=== PATIENT | female | born 1940 | race Caucasian/White ===

== ENCOUNTER → 2016-05-03 | Outpatient (CLI) | payer MEDICARE, BC ==
[~2016-05-03] MED LIST: ESCI20TA10 PO; HYDR-3343 PO; HYDR25TA6 PO; LEVO88TA32 PO; LORA1TAB PO; LOSA100T6 PO; OMNIPAQUE 350 MG/ML, 75ML BOTTLE ONE; PENT100C2 PO; POTA10TA11 PO; SOTA120T26 PO; TRAM50TA2 PO; TYLENOL ARTHRITIS PO; WARF5TAB7 PO
== END | disposition home or self-care (01) ==
LOC: CFH 09:48
PROVIDERS: ATTEND Internal Medicine Cardiovascular Disease
DX: I08.3 Combined rheumatic disorders of mitral, aortic and tricuspid valves (principal); R91.1 Solitary pulmonary nodule; D16.01 Benign neoplasm of scapula and long bones of right upper limb; M25.811 Other specified joint disorders, right shoulder; I10 Essential (primary) hypertension; Z87.891 Personal history of nicotine dependence; I51.7 Cardiomegaly
CPT/HCPCS: 71260; 93306; Q9967

== ENCOUNTER 2017-01-16 15:45 | Inpatient (IN) | payer MEDICARE, BC ==
[~2017-01-16] VITALS: Ht 175.3 cm; Wt 98.0 kg
[~2017-01-16 15:45] MED LIST changes: -LEVO88TA32 PO; +LEVO88TA43 PO; -OMNIPAQUE 350 MG/ML, 75ML BOTTLE ONE
[2017-01-16] MEDS ORDERED: ONDANSETRON 2MG/ML, 2ML ONE (16:33)
[2017-01-16] MEDS ORDERED: ONDANSETRON 2MG/ML, 2ML IVPush ONE (17:00)
[2017-01-16] MEDS ORDERED: SODIUM CHLORIDE 0.9% 1,000ML IVBOLUS ONE (17:00)
[2017-01-16] MEDS ORDERED: SODIUM CHLORIDE FLUSH 10ML SYR IVF ONE (17:00)
[2017-01-16 17:27] LABS: MEAN CORPUSCULAR HEMOGLOBIN 33.3 pg (27.0-34.8); MEAN CORPUSCULAR HGB CONC 33.6 g/dL (32.4-35.8); MEAN CORPUSCULAR VOLUME 99.2 fL (80-100); PLATELET COUNT 269 x10^3/uL (130-400); RED BLOOD COUNT 4.24 x10^6/uL (3.82-5.3); RED CELL DISTRIBUTION WIDTH 12.9 % (9.6-15.2)
[2017-01-16 17:34] LABS: INTERNATIONAL NORMALIZED RATIO 1.02 (0.93-1.1); PROTHROMBIN TIME 10.5 Seconds (9.6-11.5)
[2017-01-16 17:46] LABS: ALANINE AMINOTRANSFERASE 21 U/L (12-78); ALBUMIN 3.4 g/dL (3.4-5.0); BASOPHILS # (AUTO) 0.01 x10^3/uL (0-0.1); BASOPHILS % (AUTO) 0 % (0-1); BILIRUBIN, DIRECT 0.1 mg/dL (0.1-0.2); EOSINOPHILS # (AUTO) 0.11 x10^3/uL (0-0.4); EOSINOPHILS % (AUTO) 1 % (1-7); LYMPHOCYTES # (AUTO) 1.16 x10^3/uL (1-3.4); LYMPHOCYTES % (AUTO) 6 % (22-44); MD SCAN; MONOCYTES # (AUTO) 0.54 x10^3/uL (0.2-0.8); MONOCYTES % (AUTO) 3 % (2-9); NEUTROPHILS % (AUTO) 90 % (42-75)
[2017-01-16 17:49] LABS: ALKALINE PHOSPHATASE 72 U/L (45-117); BILIRUBIN,INDIRECT 0.6 mg/dL (0.0-2.0); BILIRUBIN,TOTAL 0.7 mg/dL (0.2-1.0); TOTAL PROTEIN 6.7 g/dL (6.4-8.2); TROPONIN I 0.055 ng/mL (0.000-0.045)
[2017-01-16] MEDS ORDERED: OMNIPAQUE 350 MG/ML, 100ML BOTTLE ONE (18:04)
[2017-01-16] MEDS ORDERED: hydrALAzine 20 MG/ML, 1ML ONE (18:50)
[2017-01-16] MEDS ORDERED: hydrALAzine 20 MG/ML, 1ML IV ONE (19:00)
[2017-01-16] MEDS ORDERED: LIDOCAINE 1%-EPI 1:100K, 20ML INFIL ONE (19:00)
[2017-01-16] MEDS ORDERED: HYDROmorphone 1 MG/ML, 1ML IV ONE ×2 (19:30→20:00)
[2017-01-16] MEDS ORDERED: LIDOCAINE/PF 1%-EPI 1:200K, 30 ML INFIL ONE (19:30)
[2017-01-16] MEDS ORDERED: DIPHENHYDRAMINE 50 MG/ML, 1ML IVPush ONE (20:00)
[2017-01-16] MEDS ORDERED: DIPHENHYDRAMINE 50 MG/ML, 1ML ONE (20:03)
[2017-01-16] MEDS ORDERED: HYDROmorphone 1 MG/ML, 1ML ONE (20:03)
[2017-01-16] MEDS ORDERED: BACITRACIN ZINC OINT 500U/GM, 0.9 GM ONE (20:13)
[2017-01-16] MEDS ORDERED: ASPI-515 PO (20:23)
[2017-01-16] MEDS ORDERED: PROMETHAZINE 25 MG/ML, 1ML ONE (20:33)
[2017-01-16] MEDS ORDERED: PROMETHAZINE 25 MG/ML, 1ML IM ONE (21:00)
[2017-01-16] MEDS ORDERED: CEFAZOLIN PMX 2GM/50ML 50 ML IV ONE (21:00)
[2017-01-16] MEDS: SODIUM CHLORIDE 0.9% 1,000 ML IV SCH (22:38)
[2017-01-16 22:47] LABS: TROPONIN I 0.052 ng/mL (0.000-0.045)
[2017-01-17] MEDS ORDERED: DIPHENHYDRAMINE 50 MG/ML, 1ML ONE (00:41)
[2017-01-17] MEDS ORDERED: HYDROmorphone 1 MG/ML, 1ML ONE (00:41)
[2017-01-17] MEDS ORDERED: HYDROmorphone 2 MG/ML, 1ML IVPush PRN (01:00)
[2017-01-17] MEDS ORDERED: DIPHENHYDRAMINE 50 MG/ML, 1ML IVPush SCH (01:00)
[2017-01-17 03:58] LABS: ALBUMIN 3.1 g/dL (3.4-5.0); ANION GAP 8 mmol/L (5-15); CALCIUM 8.9 mg/dL (8.5-10.1); CHLORIDE 101 mmol/L (98-107)
[2017-01-17 04:04] LABS: ALANINE AMINOTRANSFERASE 19 U/L (12-78); ALKALINE PHOSPHATASE 65 U/L (45-117); BILIRUBIN,TOTAL 0.7 mg/dL (0.2-1.0); CHOL/HDL RATIO 3.9; CHOLESTEROL, TOTAL 162 mg/dL (140-239); CREATININE 0.87 mg/dL (0.55-1.02); HDL CHOL % 26 % (28-40); HDL CHOLESTEROL (DIRECT) 42 mg/dL (40-60); LDL CHOLESTEROL,CALCULATED 102 mg/dL (54-169); LDL/HDL RATIO 2.4 (0.5-3.0); TOTAL PROTEIN 6.2 g/dL (6.4-8.2); TRIGLYCERIDES 91 mg/dL (50-200); TROPONIN I 0.041 ng/mL (0.000-0.045); VLDL CHOLESTEROL 18 mg/dL (0-25)
[2017-01-17 04:14] LABS: BASOPHILS % (AUTO) 0 % (0-1); EOSINOPHILS # (AUTO) 0.02 x10^3/uL (0-0.4); EOSINOPHILS % (AUTO) 0 % (1-7); LYMPHOCYTES # (AUTO) 0.92 x10^3/uL (1-3.4); LYMPHOCYTES % (AUTO) 7 % (22-44); MD NO; MEAN CORPUSCULAR HEMOGLOBIN 33.1 pg (27.0-34.8); MEAN CORPUSCULAR HGB CONC 33.5 g/dL (32.4-35.8); MEAN CORPUSCULAR VOLUME 98.9 fL (80-100); MEAN PLATELET VOLUME 7.8 fL (7.4-10.4); MONOCYTES # (AUTO) 0.31 x10^3/uL (0.2-0.8); MONOCYTES % (AUTO) 2 % (2-9); NEUTROPHILS # (AUTO) 11.76 x10^3/uL (1.8-6.8); NEUTROPHILS % (AUTO) 91 % (42-75); PLATELET COUNT 277 x10^3/uL (130-400); RED BLOOD COUNT 4.06 x10^6/uL (3.82-5.3); RED CELL DISTRIBUTION WIDTH 12.8 % (9.6-15.2)
[2017-01-17] MEDS: SODIUM CHLORIDE 0.9% 1,000 ML IV SCH (08:22)
[2017-01-17] MEDS ORDERED: MAGNESIUM CITRATE 300ML ORAL SOL PO PRN (09:00)
[2017-01-17] MEDS ORDERED: POLYETHYLENE GLYCOL 17 GM PACKET PO PRN (09:00)
[2017-01-17] MEDS ORDERED: BISACODYL 10 MG SUPP PR PRN (09:00)
[2017-01-17] MEDS ORDERED: OXYcodone IR 5MG TABLET PO PRN (09:00)
[2017-01-17] MEDS: LEVOTHYROXINE 88 MCG TABLET PO SCH (09:15)
[2017-01-17] MEDS: CITALOPRAM 20 MG TABLET PO SCH (09:15)
[2017-01-17] MEDS: LOSARTAN 50MG TABLET PO SCH (09:16)
[2017-01-17] MEDS: DOCUSATE 100 MG CAPSULE PO SCH (09:16)
[2017-01-17] MEDS: DIPHENHYDRAMINE 25 MG CAPSULE PO PRN ×2 (10:01→17:26)
[2017-01-17] MEDS: ONDANSETRON 2MG/ML, 2ML IVPush PRN (19:45)
[2017-01-17] MEDS: SOTALOL 120MG TABLET PO SCH (19:45)
[2017-01-17] MEDS: SENNA/DOCUSATE TABLET PO SCH (19:47)
[2017-01-18 04:24] VITALS: BP 139/59
[2017-01-18] MEDS: LEVOTHYROXINE 88 MCG TABLET PO SCH (04:39)
[2017-01-18] MEDS: ACETAMINOPHEN 325 MG TABLET PO PRN ×2 (04:39→16:54)
[2017-01-18] MEDS: MECLIZINE CHEWABLE 25 MG TAB PO PRN ×2 (04:39→16:54)
[2017-01-18 04:45] LABS: ANION GAP 3 mmol/L (5-15); CHLORIDE 103 mmol/L (98-107); CREATININE 0.93 mg/dL (0.55-1.02)
[2017-01-18] MEDS ORDERED: POTASSIUM CHLORIDE 20 MEQ TAB.ER.PRT PO ONE (08:00)
[2017-01-18] MEDS: DOCUSATE 100 MG CAPSULE PO SCH (08:44)
[2017-01-18] MEDS: CITALOPRAM 20 MG TABLET PO SCH (08:44)
[2017-01-18] MEDS: SOTALOL 120MG TABLET PO SCH ×2 (08:45→21:34)
[2017-01-18] MEDS: LOSARTAN 50MG TABLET PO SCH (08:46)
[2017-01-18 16:36] VITALS: BP 172/83
[2017-01-18 16:53] VITALS: BP 165/88
[2017-01-18 20:59] VITALS: BP 135/75
[2017-01-18] MEDS: SENNA/DOCUSATE TABLET PO SCH (21:00)
[2017-01-19 01:37] VITALS: BP 158/77
[2017-01-19] MEDS: DIPHENHYDRAMINE 25 MG CAPSULE PO PRN ×3 (01:47→20:27)
[2017-01-19] MEDS: LEVOTHYROXINE 88 MCG TABLET PO SCH (06:00)
[2017-01-19 08:30] VITALS: BP 157/83
[2017-01-19] MEDS: DOCUSATE 100 MG CAPSULE PO SCH (09:00)
[2017-01-19] MEDS: CITALOPRAM 20 MG TABLET PO SCH (10:44)
[2017-01-19] MEDS: SOTALOL 120MG TABLET PO SCH ×2 (10:44→20:27)
[2017-01-19] MEDS: MECLIZINE CHEWABLE 25 MG TAB PO PRN ×2 (10:44→17:29)
[2017-01-19] MEDS: LOSARTAN 50MG TABLET PO SCH (10:47)
[2017-01-19 14:30] VITALS: BP 157/77
[2017-01-19 17:18] LABS: CLOSTRIDIUM DIFFICILE ANTIGEN NEGATIVE; CLOSTRIDIUM DIFFICILE TOXIN NEGATIVE (Negative)
[2017-01-19] MEDS: ACETAMINOPHEN 325 MG TABLET PO PRN (17:29)
[2017-01-19] MEDS ORDERED: DIPHENOXYLATE/ATROPINE TABLET PO PRN (18:00)
[2017-01-19 20:25] VITALS: BP 154/77
[2017-01-20 02:30] VITALS: BP 173/86
[2017-01-20 05:00] LABS: ANION GAP 3 mmol/L (5-15); CALCIUM 8.9 mg/dL (8.5-10.1); CHLORIDE 102 mmol/L (98-107)
[2017-01-20 05:01] LABS: CREATININE 0.81 mg/dL (0.55-1.02)
[2017-01-20] MEDS: LEVOTHYROXINE 88 MCG TABLET PO SCH (05:49)
[2017-01-20 07:54] VITALS: BP 153/89
[2017-01-20] MEDS: CITALOPRAM 20 MG TABLET PO SCH (08:45)
[2017-01-20] MEDS: LOSARTAN 50MG TABLET PO SCH (08:46)
[2017-01-20] MEDS: SOTALOL 120MG TABLET PO SCH ×2 (08:46→20:46)
[2017-01-20] MEDS: DOCUSATE 100 MG CAPSULE PO SCH (08:46)
[2017-01-20] MEDS: ACETAMINOPHEN 325 MG TABLET PO PRN (12:55)
[2017-01-20] MEDS: DIPHENHYDRAMINE 25 MG CAPSULE PO PRN ×2 (13:51→20:46)
[2017-01-20 14:30] VITALS: BP 157/94
[2017-01-20 20:10] VITALS: BP_SYST 195; BP_SYST 196; BP_DIAS 79; BP_DIAS 82
[2017-01-20] MEDS: MECLIZINE CHEWABLE 25 MG TAB PO PRN (20:46)
[2017-01-21 00:53] VITALS: BP 188/80
[2017-01-21] MEDS: ACETAMINOPHEN 325 MG TABLET PO PRN (01:12)
[2017-01-21] MEDS: hydrALAzine 20 MG/ML, 1ML IVPush PRN ×2 (01:14→05:17)
[2017-01-21 02:22] VITALS: BP 175/82
[2017-01-21] MEDS: LEVOTHYROXINE 88 MCG TABLET PO SCH (05:07)
[2017-01-21 05:09] VITALS: BP 180/81
[2017-01-21] MEDS: DIPHENHYDRAMINE 25 MG CAPSULE PO PRN (06:19)
[2017-01-21] MEDS: ONDANSETRON 2MG/ML, 2ML IVPush PRN (07:29)
[2017-01-21 07:52] VITALS: BP 180/83
[2017-01-21] MEDS: LOSARTAN 50MG TABLET PO SCH (08:26)
[2017-01-21] MEDS: SOTALOL 120MG TABLET PO SCH (08:27)
[2017-01-21] MEDS: CITALOPRAM 20 MG TABLET PO SCH (08:27)
[2017-01-21] MEDS: DOCUSATE 100 MG CAPSULE PO SCH (08:28)
[2017-01-21] MEDS ORDERED: HYDROCHLOROTHIAZIDE 25 MG TABLET PO SCH (09:00)
[2017-01-21] MEDS ORDERED: ASPIRIN 81 MG TABLET EC PO SCH (09:00)
[2017-01-21] MEDS ORDERED: POTASSIUM CHLORIDE 10 MEQ TABLET.ER PO SCH (09:00)
[2017-01-21 14:05] VITALS: BP 158/88
== END 2017-01-21 15:54 | disposition home or self-care (01) | DRG 84 ==
LOC: ED 20:03 → EDIP 20:57 → SUATTDRO 21:45 → CCU 01-17 07:45 → 4EST 01-18 16:24
PROVIDERS: ADMIT Hospitalist; ATTEND Hospitalist
PROC: 0HQ0XZZ Repair Scalp Skin, External Approach (ICD-10-PCS; principal; 2017-01-16)
PROC: 0HD0XZZ Extraction of Scalp Skin, External Approach (ICD-10-PCS; 2017-01-16)
DX: S06.5X9A Traumatic subdural hemorrhage with loss of consciousness of unspecified duration, initial encounter (principal); I48.0 Paroxysmal atrial fibrillation; I11.9 Hypertensive heart disease without heart failure; S02.119A Unspecified fracture of occiput, initial encounter for closed fracture; Z88.8 Allergy status to other drugs, medicaments and biological substances; E03.9 Hypothyroidism, unspecified; F32.9 Major depressive disorder, single episode, unspecified; M19.90 Unspecified osteoarthritis, unspecified site; M43.12 Spondylolisthesis, cervical region; S01.01XA Laceration without foreign body of scalp, initial encounter; W18.30XA Fall on same level, unspecified, initial encounter; Y93.89 Activity, other specified; Y92.89 Other specified places as the place of occurrence of the external cause; Y99.8 Other external cause status; Z79.82 Long term (current) use of aspirin; Z96.643 Presence of artificial hip joint, bilateral; Z96.659 Presence of unspecified artificial knee joint; I65.21 Occlusion and stenosis of right carotid artery
CPT/HCPCS: 13121; 36415; 70450; 71010; 71275; 72125; 80047; 80048; 80053; 80061; 80076; 83690; 83735; 84484; 85025; 85610; 85730; 87081; 87324; 93005; 93306; 93880; 96361; 96365; 96372; 96375; 96376; J0690; J1170; J2405; J2550; Q9967; J0360; J1200; J7030; Q0163

== ENCOUNTER 2017-02-07 18:12 | Emergency (ER) | payer MEDICARE, BC ==
[~2017-02-07] VITALS: Ht 175.3 cm; Wt 88.6 kg
[~2017-02-07 18:12] MED LIST changes: +ASPI-515 PO
[2017-02-07] MEDS ORDERED: PLEASE ENTER HEIGHT AND WEIGHT MC SCH (18:30)
[2017-02-07] MEDS ORDERED: ASPI-496 PO (18:31)
[2017-02-07 18:40] LABS: BASOPHILS # (AUTO) 0.06 x10^3/uL (0-0.1); BASOPHILS % (AUTO) 1 % (0-1); EOSINOPHILS # (AUTO) 0.15 x10^3/uL (0-0.4); EOSINOPHILS % (AUTO) 1 % (1-7); LYMPHOCYTES # (AUTO) 2.22 x10^3/uL (1-3.4); LYMPHOCYTES % (AUTO) 19 % (22-44); MD NO; MEAN CORPUSCULAR HEMOGLOBIN 32.6 pg (27.0-34.8); MEAN CORPUSCULAR HGB CONC 33.1 g/dL (32.4-35.8); MEAN CORPUSCULAR VOLUME 98.5 fL (80-100); MEAN PLATELET VOLUME 7.3 fL (7.4-10.4); MONOCYTES # (AUTO) 0.63 x10^3/uL (0.2-0.8); MONOCYTES % (AUTO) 5 % (2-9); NEUTROPHILS # (AUTO) 8.72 x10^3/uL (1.8-6.8); NEUTROPHILS % (AUTO) 74 % (42-75); PLATELET COUNT 318 x10^3/uL (130-400); RED BLOOD COUNT 4.34 x10^6/uL (3.82-5.3); RED CELL DISTRIBUTION WIDTH 12.6 % (9.6-15.2)
[2017-02-07 18:51] LABS: ALBUMIN 3.4 g/dL (3.4-5.0); ANION GAP 10 mmol/L (5-15); CALCIUM 9.6 mg/dL (8.5-10.1); CHLORIDE 100 mmol/L (98-107); CREATININE 0.85 mg/dL (0.55-1.02)
[2017-02-07 19:40] VITALS: BP 180/81
== END 2017-02-07 19:45 | disposition home or self-care (01) ==
LOC: ED 19:25
DX: I10 Essential (primary) hypertension (principal); F07.81 Postconcussional syndrome; I48.91 Unspecified atrial fibrillation
CPT/HCPCS: 36415; 70450; 71010; 80048; 82040; 85025; 93005; 99285

== ENCOUNTER → 2017-03-31 | Outpatient (CLI) | payer MEDICARE, BC ==
[~2017-03-31] MED LIST changes: +ASPI-496 PO; +REGADENOSON 0.4 MG/5 ML SYRINGE ONE
== END | disposition home or self-care (01) ==
LOC: CFH 08:09
PROVIDERS: ATTEND Internal Medicine Cardiovascular Disease
DX: I48.0 Paroxysmal atrial fibrillation (principal); R55 Syncope and collapse
CPT/HCPCS: 78452; 93017; A9502; J2785

== ENCOUNTER 2017-04-16 18:45 | Inpatient (IN) | payer MEDICARE, BC ==
[~2017-04-16] VITALS: Ht 175.3 cm; Wt 92.7 kg
[~2017-04-16 18:45] MED LIST changes: -REGADENOSON 0.4 MG/5 ML SYRINGE ONE
[2017-04-16] MEDS ORDERED: SODIUM CHLORIDE FLUSH 10ML SYR IVF ONE (19:00)
[2017-04-16] MEDS ORDERED: LORazepam 2 MG/ML, 1ML IVPush ONE (19:00)
[2017-04-16] MEDS ORDERED: METOPROLOL 1 MG/ML, 5ML ONE (19:12)
[2017-04-16] MEDS ORDERED: LORazepam 2 MG/ML, 1ML ONE (19:13)
[2017-04-16] MEDS: METOPROLOL 1 MG/ML, 5ML IVPush PRN ×4 (19:16→22:23)
[2017-04-16 19:19] LABS: BASOPHILS # (AUTO) 0.06 x10^3/uL (0-0.1); BASOPHILS % (AUTO) 0 % (0-1); EOSINOPHILS # (AUTO) 0.13 x10^3/uL (0-0.4); EOSINOPHILS % (AUTO) 1 % (1-7); LYMPHOCYTES # (AUTO) 2.37 x10^3/uL (1-3.4); LYMPHOCYTES % (AUTO) 17 % (22-44); MD NO; MEAN CORPUSCULAR HGB CONC 33.7 g/dL (32.4-35.8); MEAN CORPUSCULAR VOLUME 97.8 fL (80-100); MONOCYTES # (AUTO) 0.96 x10^3/uL (0.2-0.8); MONOCYTES % (AUTO) 7 % (2-9); NEUTROPHILS # (AUTO) 10.22 x10^3/uL (1.8-6.8); NEUTROPHILS % (AUTO) 74 % (42-75); PLATELET COUNT 286 x10^3/uL (130-400); RED BLOOD COUNT 4.44 x10^6/uL (3.82-5.3); RED CELL DISTRIBUTION WIDTH 12.9 % (9.6-15.2)
[2017-04-16 19:25] LABS: INTERNATIONAL NORMALIZED RATIO 0.96 (0.93-1.1)
[2017-04-16 19:31] LABS: ALANINE AMINOTRANSFERASE 19 U/L (12-78); ALBUMIN 3.3 g/dL (3.4-5.0); ANION GAP 7 mmol/L (5-15); CALCIUM 9.2 mg/dL (8.5-10.1); CHLORIDE 99 mmol/L (98-107); CREATININE 0.93 mg/dL (0.55-1.02)
[2017-04-16] MEDS ORDERED: GABA300C10 PO (19:33)
[2017-04-16 19:35] LABS: ALKALINE PHOSPHATASE 77 U/L (45-117); BILIRUBIN,TOTAL 0.5 mg/dL (0.2-1.0); T4 (THYROXINE) 10.4 mcg/dL (4.8-13.9); TOTAL PROTEIN 6.8 g/dL (6.4-8.2); TROPONIN I < 0.015 ng/mL (0.000-0.045)
[2017-04-16] MEDS ORDERED: DILTIAZEM 125 MG in DEXTROSE 5% 100 ML IV SCH (19:47)
[2017-04-16] MEDS ORDERED: HEPARIN 25,000 UNITS/500ML PMX 500 ML IV PRN (20:00)
[2017-04-16] MEDS ORDERED: POTASSIUM CHLORIDE 20 MEQ TAB.ER.PRT PO ONE (20:00)
[2017-04-16] MEDS ORDERED: DILTIAZEM 5 MG/ML, 5ML IVPush ONE (20:00)
[2017-04-16] MEDS ORDERED: HEPARIN 5,000 UNITS/ML, 1ML IV ONE (20:00)
[2017-04-16] MEDS ORDERED: HEPARIN 25,000 UNITS/500ML PMX 500 ML ONE (20:01)
[2017-04-16] MEDS ORDERED: HEPARIN 5,000 UNITS/ML, 1ML ONE (20:01)
[2017-04-16] MEDS ORDERED: POTASSIUM CHLORIDE 20 MEQ TAB.ER.PRT ONE (20:01)
[2017-04-16] MEDS ORDERED: DILTIAZEM 5 MG/ML, 5ML ONE (20:02)
[2017-04-16] MEDS ORDERED: morphine SULFATE 10 MG/ML, 1ML IVPush PRN (21:00)
[2017-04-16] MEDS ORDERED: POLYETHYLENE GLYCOL 17 GM PACKET PO PRN (21:00)
[2017-04-16] MEDS ORDERED: ACETAMINOPHEN 325 MG TABLET PO PRN (21:00)
[2017-04-16] MEDS ORDERED: ONDANSETRON 2MG/ML, 2ML IVPush PRN (21:00)
[2017-04-16] MEDS ORDERED: ENOXAPARIN 40 MG/0.4 ML SQ SCH (21:00)
[2017-04-16 22:00] VITALS: BP 122/82
[2017-04-16 22:03] VITALS: BP 122/82
[2017-04-16] MEDS: NS + 20MEQ KCL 1,000 ML IV SCH (22:45)
[2017-04-16] MEDS: SOTALOL 120MG TABLET PO SCH (22:46)
[2017-04-17 02:10] VITALS: BP 116/77
[2017-04-17 05:22] LABS: ANION GAP 8 mmol/L (5-15); CHLORIDE 105 mmol/L (98-107)
[2017-04-17 05:28] LABS: ALANINE AMINOTRANSFERASE 14 U/L (12-78); ALKALINE PHOSPHATASE 66 U/L (45-117); BILIRUBIN,TOTAL 0.6 mg/dL (0.2-1.0); CREATININE 0.77 mg/dL (0.55-1.02); TOTAL PROTEIN 5.9 g/dL (6.4-8.2)
[2017-04-17 05:32] LABS: BASOPHILS # (AUTO) 0.05 x10^3/uL (0-0.1); BASOPHILS % (AUTO) 1 % (0-1); EOSINOPHILS # (AUTO) 0.14 x10^3/uL (0-0.4); EOSINOPHILS % (AUTO) 2 % (1-7); LYMPHOCYTES # (AUTO) 1.95 x10^3/uL (1-3.4); LYMPHOCYTES % (AUTO) 22 % (22-44); MD NO; MEAN CORPUSCULAR HEMOGLOBIN 32.9 pg (27.0-34.8); MEAN CORPUSCULAR HGB CONC 33.6 g/dL (32.4-35.8); MEAN PLATELET VOLUME 8.2 fL (7.4-10.4); MONOCYTES # (AUTO) 0.69 x10^3/uL (0.2-0.8); MONOCYTES % (AUTO) 8 % (2-9); NEUTROPHILS # (AUTO) 6.22 x10^3/uL (1.8-6.8); NEUTROPHILS % (AUTO) 69 % (42-75); PLATELET COUNT 252 x10^3/uL (130-400); RED BLOOD COUNT 4.17 x10^6/uL (3.82-5.3); RED CELL DISTRIBUTION WIDTH 13.5 % (9.6-15.2)
[2017-04-17 07:14] VITALS: BP 154/75
[2017-04-17] MEDS ORDERED: SODIUM CHLORIDE 0.9% 1,000 ML IV ONE (08:42)
[2017-04-17] MEDS ORDERED: CITALOPRAM 20 MG TABLET PO SCH (09:00)
[2017-04-17] MEDS ORDERED: POTASSIUM CHLORIDE 20 MEQ TAB.ER.PRT PO SCH (09:00)
[2017-04-17] MEDS ORDERED: ASPIRIN 81 MG TABLET EC PO SCH (09:00)
[2017-04-17] MEDS ORDERED: LEVOTHYROXINE 88 MCG TABLET PO SCH (09:00)
[2017-04-17] MEDS ORDERED: SPIRONOLACT/HCTZ 25/25MG TABLET PO SCH (09:00)
[2017-04-17] MEDS ORDERED: LOSARTAN 50MG TABLET PO SCH (09:00)
[2017-04-17] MEDS ORDERED: DILTIAZEM 120 MG CAP.ER.24H PO SCH (09:00)
[2017-04-17] MEDS: NS + 20MEQ KCL 1,000 ML IV SCH (09:02)
[2017-04-17] MEDS: SOTALOL 120MG TABLET PO SCH (09:03)
[2017-04-17 10:40] LABS: HEMOGLOBIN A1C 6.2 % (4.2-6.3)
[2017-04-17 10:48] LABS: CHOLESTEROL, TOTAL 140 mg/dL (140-239); TRIGLYCERIDES 144 mg/dL (50-200); VLDL CHOLESTEROL 29 mg/dL (0-25)
[2017-04-17 10:52] LABS: CHOL/HDL RATIO 4.5; HDL CHOL % 22 % (28-40); HDL CHOLESTEROL (DIRECT) 31 mg/dL (40-60); LDL CHOLESTEROL,CALCULATED 80 mg/dL (54-169); LDL/HDL RATIO 2.6 (0.5-3.0); TROPONIN I 0.144 ng/mL (0.000-0.045)
[2017-04-17] MEDS ORDERED: VERAPAMIL 2.5 MG/ML, 2ML ONE (12:21)
[2017-04-17] MEDS ORDERED: MIDAZOLAM 1 MG/ML, 5ML ONE (12:21)
[2017-04-17] MEDS ORDERED: TICAGRELOR 90 MG TABLET ONE (12:21)
[2017-04-17] MEDS ORDERED: FENTANYL PF 100 MCG/2ML ONE (12:21)
[2017-04-17] MEDS ORDERED: BIVALIRUDIN 250 MG ONE (12:21)
[2017-04-17] MEDS ORDERED: DIPHENHYDRAMINE 50 MG/ML, 1ML ONE (12:22)
[2017-04-17] MEDS ORDERED: LIDOCAINE 2%, 20ML ONE (12:22)
[2017-04-17] MEDS ORDERED: HEPARIN 1,000 UNITS/ML, 10ML ONE (12:22)
[2017-04-17 13:18] VITALS: BP 157/84
[2017-04-17] MEDS ORDERED: ACETAMINOPHEN 325 MG TABLET PO PRN (13:30)
[2017-04-17] MEDS ORDERED: HYDR-3343 PO (17:01)
[2017-04-17] MEDS ORDERED: SPIR1TAB3 PO (17:01)
[2017-04-17] MEDS ORDERED: DILT120C9 PO (17:02)
[2017-04-17] MEDS ORDERED: ATOR40TA PO (17:03)
[2017-04-17] MEDS ORDERED: ATORVASTATIN 40 MG TABLET PO SCH (21:00)
== END 2017-04-17 20:31 | disposition home or self-care (01) | DRG 287 ==
LOC: ED 19:13 → EDIP 19:51 → 5SO 21:36
PROVIDERS: ADMIT Hospitalist; ATTEND Hospitalist
PROC: 4A023N7 Measurement of Cardiac Sampling and Pressure, Left Heart, Percutaneous Approach (ICD-10-PCS; principal; 2017-04-16)
PROC: B2111ZZ Fluoroscopy of Multiple Coronary Arteries using Low Osmolar Contrast (ICD-10-PCS; 2017-04-16)
PROC: B2151ZZ Fluoroscopy of Left Heart using Low Osmolar Contrast (ICD-10-PCS; 2017-04-16)
DX: I48.0 Paroxysmal atrial fibrillation (principal); D68.69 Other thrombophilia; I49.5 Sick sinus syndrome; I25.10 Atherosclerotic heart disease of native coronary artery without angina pectoris; I65.21 Occlusion and stenosis of right carotid artery; I48.92 Unspecified atrial flutter; E03.9 Hypothyroidism, unspecified; I10 Essential (primary) hypertension; E78.5 Hyperlipidemia, unspecified; F17.210 Nicotine dependence, cigarettes, uncomplicated; Z96.643 Presence of artificial hip joint, bilateral; Z96.652 Presence of left artificial knee joint; F32.9 Major depressive disorder, single episode, unspecified; G89.29 Other chronic pain; M19.90 Unspecified osteoarthritis, unspecified site; M54.9 Dorsalgia, unspecified; Z79.01 Long term (current) use of anticoagulants; Z79.82 Long term (current) use of aspirin; Z79.899 Other long term (current) drug therapy; Z90.710 Acquired absence of both cervix and uterus; Z88.8 Allergy status to other drugs, medicaments and biological substances; Z88.5 Allergy status to narcotic agent
CPT/HCPCS: 36415; 71045; 80053; 80061; 83036; 83735; 83880; 84100; 84436; 84443; 84484; 85025; 85520; 85610; 93005; 93306; 93458; 96374; 96375; 99156; C1769; C1894; J0583; J1644; J1650; J2250; J3010; J3480; J3490; J1200; J2060; Q9967

== ENCOUNTER 2018-01-25 09:49 | Inpatient (IN) | payer MEDICARE, BC ==
[~2018-01-25] VITALS: Ht 175.3 cm; Wt 101.5 kg
[~2018-01-25 09:49] MED LIST changes: +ATOR40TA PO; +DILT120C9 PO; +GABA300C10 PO; -LOSA100T6 PO; +LOSA100T7 PO; +SPIR1TAB3 PO; +WARF-36 PO; -WARF5TAB7 PO
[2018-01-25] MEDS ORDERED: FENTANYL PF 100 MCG/2ML IVPush PRN (11:00)
[2018-01-25] MEDS ORDERED: FENTANYL PF 100 MCG/2ML ONE (11:12)
[2018-01-25 11:30] LABS: BASOPHILS # (AUTO) 0.09 x10^3/uL (0-0.1); BASOPHILS % (AUTO) 1 % (0-1); EOSINOPHILS # (AUTO) 0.16 x10^3/uL (0-0.4); EOSINOPHILS % (AUTO) 1 % (1-7); LYMPHOCYTES # (AUTO) 1.11 x10^3/uL (1-3.4); LYMPHOCYTES % (AUTO) 10 % (22-44); MD NO; MEAN CORPUSCULAR HEMOGLOBIN 32.4 pg (27.0-34.8); MEAN CORPUSCULAR HGB CONC 32.9 g/dL (32.4-35.8); MEAN CORPUSCULAR VOLUME 98.5 fL (80-100); MEAN PLATELET VOLUME 8.1 fL (7.4-10.4); MONOCYTES # (AUTO) 0.65 x10^3/uL (0.2-0.8); MONOCYTES % (AUTO) 6 % (2-9); NEUTROPHILS # (AUTO) 9.04 x10^3/uL (1.8-6.8); NEUTROPHILS % (AUTO) 82 % (42-75); PLATELET COUNT 262 x10^3/uL (130-400); RED CELL DISTRIBUTION WIDTH 13.1 % (9.6-15.2)
[2018-01-25 11:42] LABS: INTERNATIONAL NORMALIZED RATIO 1.02 (0.93-1.1); PROTHROMBIN TIME 10.8 Seconds (9.6-11.5)
[2018-01-25 11:52] LABS: ALBUMIN 3.2 g/dL (3.4-5.0); ANION GAP 7 mmol/L (5-15); CALCIUM 9.3 mg/dL (8.5-10.1); CHLORIDE 105 mmol/L (98-107); CREATININE 1.06 mg/dL (0.55-1.02)
[2018-01-25] MEDS ORDERED: BUPR1PAT20 TD (13:43)
[2018-01-25] MEDS ORDERED: HYDR-3342 PO (13:44)
[2018-01-25] MEDS ORDERED: SPIR25TA5 PO (13:46)
[2018-01-25] MEDS ORDERED: ESCI20TA PO (13:48)
[2018-01-25] MEDS ORDERED: DILT120C64 PO (13:51)
[2018-01-25] MEDS ORDERED: LOSA100T7 PO (13:51)
[2018-01-25] MEDS ORDERED: LIDOCAINE 1%, 10ML INFIL ONE (14:30)
[2018-01-25] MEDS ORDERED: LIDOCAINE-MPF 1%, 5ML ONE (14:34)
[2018-01-25] MEDS ORDERED: LIDOCAINE-MPF 1%, 5ML INFIL ONE (15:00)
[2018-01-25 16:24] VITALS: BP 136/82
[2018-01-25] MEDS ORDERED: ACETAMINOPHEN 325 MG TABLET PO PRN ×2 (17:00→17:30)
[2018-01-25] MEDS ORDERED: hydrALAzine 20 MG/ML, 1ML IVPush PRN (17:30)
[2018-01-25] MEDS ORDERED: ONDANSETRON 2MG/ML, 2ML IVPush PRN (17:30)
[2018-01-25] MEDS: morphine SULFATE 10 MG/ML, 1ML IVPush PRN (17:41)
[2018-01-25] MEDS: GABAPENTIN 300 MG CAPSULE PO SCH ×2 (17:43→21:46)
[2018-01-25] MEDS: SODIUM CHLORIDE 0.9% 1,000 ML IV SCH (17:43)
[2018-01-25] MEDS ORDERED: TRAMADOL MC SCH (18:00)
[2018-01-25 19:33] VITALS: BP 121/76
[2018-01-25 19:42] LABS: MICROSCOPIC AUTO
[2018-01-25 19:48] LABS: CULTURE INDICATED? YES
[2018-01-25] MEDS: DIPHENHYDRAMINE 25 MG CAPSULE PO PRN (21:46)
[2018-01-25] MEDS: SOTALOL 120MG TABLET PO SCH (21:47)
[2018-01-26] MEDS: SODIUM CHLORIDE 0.9% 1,000 ML IV SCH (02:50)
[2018-01-26] MEDS: morphine SULFATE 10 MG/ML, 1ML IVPush PRN ×2 (02:59→08:21)
[2018-01-26 03:23] VITALS: BP 122/73
[2018-01-26 05:20] LABS: BASOPHILS # (AUTO) 0.05 x10^3/uL (0-0.1); BASOPHILS % (AUTO) 1 % (0-1); EOSINOPHILS # (AUTO) 0.18 x10^3/uL (0-0.4); EOSINOPHILS % (AUTO) 2 % (1-7); LYMPHOCYTES # (AUTO) 1.56 x10^3/uL (1-3.4); LYMPHOCYTES % (AUTO) 20 % (22-44); MD NO; MEAN CORPUSCULAR HEMOGLOBIN 33.4 pg (27.0-34.8); MEAN CORPUSCULAR VOLUME 98.2 fL (80-100); MEAN PLATELET VOLUME 8.3 fL (7.4-10.4); MONOCYTES # (AUTO) 0.62 x10^3/uL (0.2-0.8); MONOCYTES % (AUTO) 8 % (2-9); NEUTROPHILS # (AUTO) 5.47 x10^3/uL (1.8-6.8); NEUTROPHILS % (AUTO) 70 % (42-75); PLATELET COUNT 249 x10^3/uL (130-400); RED BLOOD COUNT 3.88 x10^6/uL (3.82-5.3); RED CELL DISTRIBUTION WIDTH 13.2 % (9.6-15.2)
[2018-01-26 05:31] LABS: ALANINE AMINOTRANSFERASE 21 U/L (12-78); ANION GAP 8 mmol/L (5-15); CALCIUM 9.4 mg/dL (8.5-10.1); CHLORIDE 107 mmol/L (98-107); CREATININE 1.03 mg/dL (0.55-1.02)
[2018-01-26 05:34] LABS: ALKALINE PHOSPHATASE 68 U/L (45-117); BILIRUBIN,TOTAL 0.6 mg/dL (0.2-1.0); TOTAL PROTEIN 6.2 g/dL (6.4-8.2)
[2018-01-26 06:48] VITALS: BP 134/77
[2018-01-26] MEDS ORDERED: HYDROmorphone 1 MG/ML, 1ML IM PRN (09:00)
[2018-01-26] MEDS: GABAPENTIN 300 MG CAPSULE PO SCH ×3 (09:11→20:56)
[2018-01-26] MEDS: SPIRONOLACTONE 25 MG TABLET PO SCH (09:11)
[2018-01-26] MEDS: ASPIRIN 81 MG TABLET EC PO SCH (09:11)
[2018-01-26] MEDS: LOSARTAN 50MG TABLET PO SCH (09:12)
[2018-01-26] MEDS: LEVOTHYROXINE 88 MCG TABLET PO SCH (09:12)
[2018-01-26] MEDS: SOTALOL 120MG TABLET PO SCH ×2 (09:12→20:56)
[2018-01-26] MEDS: TEMPLATE NON-FORMULARY MED. (Escitalopram Oxalate** (Lexapro**) 20 MG) PO SCH (09:13)
[2018-01-26] MEDS: TEMPLATE NON-FORMULARY MED. (Diltiazem Hcl (Cartia Xt) 120 MG) PO SCH (09:13)
[2018-01-26] MEDS: DIPHENHYDRAMINE 25 MG CAPSULE PO PRN ×3 (09:18→22:23)
[2018-01-26] MEDS: HYDROmorphone 2MG TABLET PO PRN ×3 (09:18→22:23)
[2018-01-26 12:55] VITALS: BP 106/67
[2018-01-26 20:40] VITALS: BP 134/64
[2018-01-27] MEDS: HYDROmorphone 2MG TABLET PO PRN ×3 (04:22→17:44)
[2018-01-27 05:42] LABS: BASOPHILS # (AUTO) 0.05 x10^3/uL (0-0.1); BASOPHILS % (AUTO) 1 % (0-1); EOSINOPHILS # (AUTO) 0.23 x10^3/uL (0-0.4); EOSINOPHILS % (AUTO) 3 % (1-7); LYMPHOCYTES # (AUTO) 1.45 x10^3/uL (1-3.4); LYMPHOCYTES % (AUTO) 17 % (22-44); MD NO; MEAN CORPUSCULAR HEMOGLOBIN 33.4 pg (27.0-34.8); MEAN CORPUSCULAR HGB CONC 33.5 g/dL (32.4-35.8); MEAN CORPUSCULAR VOLUME 99.6 fL (80-100); MONOCYTES # (AUTO) 0.68 x10^3/uL (0.2-0.8); MONOCYTES % (AUTO) 8 % (2-9); NEUTROPHILS # (AUTO) 6.05 x10^3/uL (1.8-6.8); NEUTROPHILS % (AUTO) 72 % (42-75); PLATELET COUNT 246 x10^3/uL (130-400); RED BLOOD COUNT 3.95 x10^6/uL (3.82-5.3); RED CELL DISTRIBUTION WIDTH 12.9 % (9.6-15.2)
[2018-01-27 05:47] LABS: CHLORIDE 105 mmol/L (98-107)
[2018-01-27 05:51] LABS: ANION GAP 9 mmol/L (5-15); CALCIUM 9.2 mg/dL (8.5-10.1); CREATININE 1.05 mg/dL (0.55-1.02)
[2018-01-27 06:58] VITALS: BP 178/77
[2018-01-27] MEDS: ASPIRIN 81 MG TABLET EC PO SCH (08:24)
[2018-01-27] MEDS: LEVOTHYROXINE 88 MCG TABLET PO SCH (08:24)
[2018-01-27] MEDS: GABAPENTIN 300 MG CAPSULE PO SCH ×3 (08:24→21:19)
[2018-01-27] MEDS: SOTALOL 120MG TABLET PO SCH ×2 (08:24→21:18)
[2018-01-27] MEDS: SPIRONOLACTONE 25 MG TABLET PO SCH (08:25)
[2018-01-27] MEDS: LOSARTAN 50MG TABLET PO SCH (08:25)
[2018-01-27] MEDS: TEMPLATE NON-FORMULARY MED. (Escitalopram Oxalate** (Lexapro**) 20 MG) PO SCH (08:25)
[2018-01-27] MEDS: TEMPLATE NON-FORMULARY MED. (Diltiazem Hcl (Cartia Xt) 120 MG) PO SCH (08:25)
[2018-01-27] MEDS: DIPHENHYDRAMINE 25 MG CAPSULE PO PRN (11:05)
[2018-01-27 14:02] VITALS: BP 142/80
[2018-01-27 19:24] VITALS: BP 148/74
[2018-01-27] MEDS: DOCUSATE 100 MG CAPSULE PO SCH (21:19)
[2018-01-28 00:25] VITALS: BP 167/78
[2018-01-28] MEDS: HYDROmorphone 2MG TABLET PO PRN ×2 (04:29→16:12)
[2018-01-28 08:07] VITALS: BP 158/80
[2018-01-28] MEDS ORDERED: CEFTRIAXONE PMX 1GM/50ML 50 ML IV SCH (09:00)
[2018-01-28] MEDS ORDERED: CEPHALEXIN 500 MG CAPSULE PO SCH (09:30)
[2018-01-28] MEDS ORDERED: CEPHALEXIN 250 MG CAPSULE ONE (09:42)
[2018-01-28] MEDS: VANCOMYCIN 50 MG/ML ORAL SUSP PO SCH ×2 (09:45→21:32)
[2018-01-28] MEDS: GABAPENTIN 300 MG CAPSULE PO SCH ×3 (09:46→21:32)
[2018-01-28] MEDS: ASPIRIN 81 MG TABLET EC PO SCH (09:46)
[2018-01-28] MEDS: LOSARTAN 50MG TABLET PO SCH (09:46)
[2018-01-28] MEDS: AMLODIPINE 5 MG TABLET PO SCH (09:46)
[2018-01-28] MEDS: SPIRONOLACTONE 25 MG TABLET PO SCH (09:47)
[2018-01-28] MEDS: DOCUSATE 100 MG CAPSULE PO SCH ×2 (09:47→21:33)
[2018-01-28] MEDS: LEVOTHYROXINE 88 MCG TABLET PO SCH (09:47)
[2018-01-28] MEDS: HEPARIN 5,000 UNITS/ML, 1ML SQ SCH ×2 (09:47→16:12)
[2018-01-28] MEDS: DIPHENHYDRAMINE 25 MG CAPSULE PO PRN ×2 (10:11→18:37)
[2018-01-28] MEDS: SOTALOL 120MG TABLET PO SCH ×2 (10:11→21:32)
[2018-01-28] MEDS: DILTIAZEM 120 MG CAP.ER.24H PO SCH (10:12)
[2018-01-28] MEDS: CITALOPRAM 20 MG TABLET PO SCH (10:12)
[2018-01-28 15:38] VITALS: BP 128/67
[2018-01-28 20:36] VITALS: BP 157/80
[2018-01-28] MEDS: CEFDINIR 300 MG CAPSULE PO SCH (21:32)
[2018-01-29] MEDS: HEPARIN 5,000 UNITS/ML, 1ML SQ SCH ×3 (02:24→16:56)
[2018-01-29 03:29] VITALS: BP 138/63
[2018-01-29 06:44] VITALS: BP 132/76
[2018-01-29] MEDS: LOSARTAN 50MG TABLET PO SCH (08:37)
[2018-01-29] MEDS: SOTALOL 120MG TABLET PO SCH (08:38)
[2018-01-29] MEDS: CITALOPRAM 20 MG TABLET PO SCH (08:38)
[2018-01-29] MEDS: GABAPENTIN 300 MG CAPSULE PO SCH ×2 (08:38→16:56)
[2018-01-29] MEDS: LEVOTHYROXINE 88 MCG TABLET PO SCH (08:38)
[2018-01-29] MEDS: ASPIRIN 81 MG TABLET EC PO SCH (08:38)
[2018-01-29] MEDS: AMLODIPINE 5 MG TABLET PO SCH (08:38)
[2018-01-29] MEDS: DOCUSATE 100 MG CAPSULE PO SCH (08:38)
[2018-01-29] MEDS: CEFDINIR 300 MG CAPSULE PO SCH (08:38)
[2018-01-29] MEDS: SPIRONOLACTONE 25 MG TABLET PO SCH (08:39)
[2018-01-29] MEDS: DILTIAZEM 120 MG CAP.ER.24H PO SCH (08:39)
[2018-01-29] MEDS: VANCOMYCIN 50 MG/ML ORAL SUSP PO SCH (08:43)
[2018-01-29] MEDS ORDERED: DILTIAZEM 120 MG CAP.ER.24H PO SCH (09:00)
[2018-01-29 12:32] VITALS: BP 117/57
[2018-01-29] MEDS ORDERED: TRAM50TA2 PO (15:16)
[2018-01-29] MEDS ORDERED: CEFD300C37 PO (15:16)
[2018-01-30] MEDS ORDERED: BUPRENORPHINE 20 MCG TD SCH (17:00)
== END 2018-01-29 18:48 | DRG 562 ==
LOC: ED 10:34 → EDIP 14:10 → 4NOR 15:31
PROVIDERS: ADMIT Hospitalist; ATTEND Family Medicine
DX: S83.014A Lateral dislocation of right patella, initial encounter (principal); N17.0 Acute kidney failure with tubular necrosis; M25.061 Hemarthrosis, right knee; N39.0 Urinary tract infection, site not specified; J96.10 Chronic respiratory failure, unspecified whether with hypoxia or hypercapnia; I25.10 Atherosclerotic heart disease of native coronary artery without angina pectoris; F32.9 Major depressive disorder, single episode, unspecified; Z96.641 Presence of right artificial hip joint; B96.20 Unspecified Escherichia coli [E. coli] as the cause of diseases classified elsewhere; E11.22 Type 2 diabetes mellitus with diabetic chronic kidney disease; I12.9 Hypertensive chronic kidney disease with stage 1 through stage 4 chronic kidney disease, or unspecified chronic kidney disease; N18.2 Chronic kidney disease, stage 2 (mild); I48.0 Paroxysmal atrial fibrillation; M85.80 Other specified disorders of bone density and structure, unspecified site; E78.5 Hyperlipidemia, unspecified; E03.9 Hypothyroidism, unspecified; I65.21 Occlusion and stenosis of right carotid artery; W01.0XXA Fall on same level from slipping, tripping and stumbling without subsequent striking against object, initial encounter; Y93.9 Activity, unspecified; Y92.038 Other place in apartment as the place of occurrence of the external cause; Y99.8 Other external cause status; Z86.19 Personal history of other infectious and parasitic diseases; Z95.0 Presence of cardiac pacemaker; Z79.82 Long term (current) use of aspirin; Z87.440 Personal history of urinary (tract) infections; Z87.891 Personal history of nicotine dependence; S80.01XA Contusion of right knee, initial encounter
CPT/HCPCS: 20610; 36415; 71045; 80048; 80053; 81001; 82040; 83735; 84100; 85025; 85610; 85730; 87077; 87086; 87186; 93005; 96374; 99285; G0378; J1644; J3010; J3370; J3490; J2270; J7030; Q0163

== ENCOUNTER 2018-03-05 17:30 | Emergency (ER) | payer MEDICARE, BC ==
[~2018-03-05] VITALS: Ht 154.9 cm; Wt 95.0 kg
[~2018-03-05 17:30] MED LIST changes: +BUPR1PAT20 TD; +CEFD300C37 PO; +DILT120C64 PO; +ESCI20TA PO; +HYDR-3342 PO; +LOSA100T14 PO; -LOSA100T7 PO; +SPIR25TA5 PO
[2018-03-05] MEDS ORDERED: ALBUTEROL/IPRATROPIUM 2.5MG/0.5MG, 3 ML ONE (18:17)
[2018-03-05] MEDS ORDERED: ALBUTEROL/IPRATROPIUM 2.5MG/0.5MG, 3 ML NPPB ONE (18:30)
[2018-03-05 18:44] LABS: BASOPHILS # (AUTO) 0.06 x10^3/uL (0-0.1); BASOPHILS % (AUTO) 1 % (0-1); EOSINOPHILS # (AUTO) 0.24 x10^3/uL (0-0.4); EOSINOPHILS % (AUTO) 2 % (1-7); LYMPHOCYTES # (AUTO) 1.46 x10^3/uL (1-3.4); LYMPHOCYTES % (AUTO) 13 % (22-44); MD NO; MEAN CORPUSCULAR HEMOGLOBIN 32.8 pg (27.0-34.8); MEAN CORPUSCULAR HGB CONC 33.2 g/dL (32.4-35.8); MEAN PLATELET VOLUME 8.8 fL (7.4-10.4); MONOCYTES # (AUTO) 0.67 x10^3/uL (0.2-0.8); MONOCYTES % (AUTO) 6 % (2-9); NEUTROPHILS # (AUTO) 9.27 x10^3/uL (1.8-6.8); NEUTROPHILS % (AUTO) 79 % (42-75); PLATELET COUNT 237 x10^3/uL (130-400); RED BLOOD COUNT 4.59 x10^6/uL (3.82-5.3); RED CELL DISTRIBUTION WIDTH 13.6 % (9.6-15.2)
--- NOTE | 2018-03-05 18:45 | NUR ---
PT REPORT FROM PAZ LIN. THIS RN TO ASSUME CARE OF PT. NO IMMEDIATE NEEDS FROM PT. VSS. CALL LIGHT SHRUTHI ENAMORADO.
[2018-03-05 18:57] LABS: ALANINE AMINOTRANSFERASE 22 U/L (12-78); ALBUMIN 3.3 g/dL (3.4-5.0); ANION GAP 6 mmol/L (5-15); CALCIUM 8.9 mg/dL (8.5-10.1); CHLORIDE 104 mmol/L (98-107); CREATININE 1.01 mg/dL (0.55-1.02)
[2018-03-05 19:02] LABS: ALKALINE PHOSPHATASE 93 U/L (45-117); BILIRUBIN,TOTAL 0.4 mg/dL (0.2-1.0); TOTAL PROTEIN 6.9 g/dL (6.4-8.2)
[2018-03-05] MEDS ORDERED: methylPREDNISolone SOD SUCC 125 MG/2 ML ONE (19:26)
[2018-03-05] MEDS ORDERED: methylPREDNISolone SOD SUCC 125 MG/2 ML IVPush ONE (19:30)
--- NOTE | 2018-03-05 19:32 | NUR ---
PT AMB W/ STEADY GAIT W/ D/C AND MAINTAIN 02 SAT >90% W/O SUP O2. NOTIFIED.
[2018-03-05 19:49] VITALS: BP 153/90
== END 2018-03-05 20:19 | disposition home or self-care (01) ==
LOC: ED 18:15
DX: J41.1 Mucopurulent chronic bronchitis (principal); I48.91 Unspecified atrial fibrillation; I10 Essential (primary) hypertension; Z87.891 Personal history of nicotine dependence; Z88.6 Allergy status to analgesic agent
CPT/HCPCS: 36415; 71045; 80053; 83605; 83880; 85025; 87040; 93005; 94640; 96374; 99284; J2930

== ENCOUNTER → 2018-06-29 | Outpatient (CLI) | payer MEDICARE, BC ==
[2018-06-29 15:44] LABS: BASOPHILS # (AUTO) 0.07 x10^3/uL (0-0.1); BASOPHILS % (AUTO) 1 % (0-1); EOSINOPHILS # (AUTO) 0.31 x10^3/uL (0-0.4); EOSINOPHILS % (AUTO) 3 % (1-7); LYMPHOCYTES % (AUTO) 17 % (22-44); MD NO; MEAN CORPUSCULAR HEMOGLOBIN 32.7 pg (27.0-34.8); MEAN CORPUSCULAR HGB CONC 31.6 g/dL (32.4-35.8); MEAN CORPUSCULAR VOLUME 103.4 fL (80-100); MEAN PLATELET VOLUME 7.9 fL (7.4-10.4); MONOCYTES # (AUTO) 0.61 x10^3/uL (0.2-0.8); MONOCYTES % (AUTO) 6 % (2-9); NEUTROPHILS # (AUTO) 7.51 x10^3/uL (1.8-6.8); NEUTROPHILS % (AUTO) 74 % (42-75); PLATELET COUNT 312 x10^3/uL (130-400); RED BLOOD COUNT 4.28 x10^6/uL (3.82-5.3); RED CELL DISTRIBUTION WIDTH 13.5 % (9.6-15.2)
[2018-06-29 15:58] LABS: ALANINE AMINOTRANSFERASE 20 U/L (12-78); ALBUMIN 3.7 g/dL (3.4-5.0); ANION GAP 4 mmol/L (5-15); CALCIUM 9.6 mg/dL (8.5-10.1); CHLORIDE 106 mmol/L (98-107); CREATININE 0.97 mg/dL (0.55-1.02)
[2018-06-29 16:00] LABS: ALKALINE PHOSPHATASE 80 U/L (45-117); TOTAL PROTEIN 7.2 g/dL (6.4-8.2)
== END | disposition home or self-care (01) ==
LOC: CFH 14:30
PROVIDERS: ATTEND Internal Medicine Cardiovascular Disease
DX: E78.2 Mixed hyperlipidemia (principal); I10 Essential (primary) hypertension; I48.2 Chronic atrial fibrillation; I48.0 Paroxysmal atrial fibrillation; R06.00 Dyspnea, unspecified; R42 Dizziness and giddiness; Z87.891 Personal history of nicotine dependence; R79.89 Other specified abnormal findings of blood chemistry
CPT/HCPCS: 36415; 80053; 83036; 85025

== ENCOUNTER 2019-11-18 18:04 | Emergency (ER) | payer MEDICARE, BC ==
[~2019-11-18] VITALS: Ht 175.3 cm; Wt 101.0 kg
[~2019-11-18 18:04] MED LIST changes: +DILT120C48 PO; -DILT120C9 PO
[2019-11-18] MEDS ORDERED: ONDANSETRON 2MG/ML, 2ML IVPush ONE (18:30)
[2019-11-18] MEDS ORDERED: SODIUM CHLORIDE FLUSH 10ML SYR IVF ONE (18:30)
[2019-11-18] MEDS ORDERED: MORPHINE SULFATE 4 MG/ML, 1ML IVPush PRN (18:30)
[2019-11-18] MEDS ORDERED: SODIUM CHLORIDE 0.9% 1,000ML IVBOLUS ONE (18:30)
--- NOTE | 2019-11-18 18:30 | NUR ---
LATE ENTRY: PT BIB EMS FOR CHILLS AND BLADDER PAIN. PT HAS A DIAGNOSED BLADDER INFECTION AND IS TAKING ABX FOR. PT DOESNT REPROT PAINFUL URINATION OR ANY OTHER URINARY SYMPTOMS BUT IS CONCERNED HER INFECTION IS GETTING WORSE. PT IS RESTING IN GURNEY CONNECTED TO MONITORING EQUIPMENT
[2019-11-18] MEDS ORDERED: ONDANSETRON 2MG/ML, 2ML ONE (18:49)
[2019-11-18] MEDS ORDERED: MORPHINE SULFATE 4 MG/ML, 1ML ONE (18:49)
[2019-11-18 19:06] LABS: BASOPHILS % (AUTO) 1 % (0-1); EOSINOPHILS % (AUTO) 2 % (1-7); LYMPHOCYTES % (AUTO) 12 % (22-44); MEAN CORPUSCULAR HEMOGLOBIN 32.6 pg (27.0-34.8); MEAN CORPUSCULAR HGB CONC 32.6 g/dL (32.4-35.8); MEAN PLATELET VOLUME 8.3 fL (7.4-10.4); MONOCYTES % (AUTO) 7 % (2-9); NEUTROPHILS % (AUTO) 79 % (42-75); PLATELET COUNT 268 x10^3/uL (130-400); RED BLOOD COUNT 4.38 x10^6/uL (3.82-5.3); RED CELL DISTRIBUTION WIDTH 12.9 % (9.6-15.2)
[2019-11-18 19:10] LABS: MD NO
[2019-11-18 19:12] LABS: MICROSCOPIC NOT IND
[2019-11-18 19:12] LABS: ALANINE AMINOTRANSFERASE 25 U/L (12-78); ALBUMIN 3.5 g/dL (3.4-5.0); ANION GAP 7 mmol/L (5-15); CALCIUM 10.3 mg/dL (8.5-10.1); CHLORIDE 101 mmol/L (98-107); CREATININE 1.27 mg/dL (0.55-1.02)
--- NOTE | 2019-11-18 19:15 | NUR ---
LATE ENTRY: LABS DRAWN. IV FLUIDS INFUSING. BLOOD CULTURES DRAWN. UA SENT.
[2019-11-18 19:16] LABS: ALKALINE PHOSPHATASE 71 U/L (45-117); BILIRUBIN,TOTAL 0.4 mg/dL (0.2-1.0); TROPONIN I < 0.015 ng/mL (0.000-0.045)
[2019-11-18 20:42] VITALS: BP 127/54
== END 2019-11-18 21:30 | disposition home or self-care (01) ==
LOC: ED 20:45
DX: R30.0 Dysuria (principal); R53.1 Weakness; E86.0 Dehydration; M25.552 Pain in left hip; I10 Essential (primary) hypertension; I48.91 Unspecified atrial fibrillation; Z87.891 Personal history of nicotine dependence; Z96.649 Presence of unspecified artificial hip joint
CPT/HCPCS: 36415; 71045; 73502; 80053; 81003; 83605; 84145; 84484; 85025; 87040; 93005; 96361; 96374; 96375; 99285; J2270; J2405; J7030

== ENCOUNTER 2020-06-29 10:00 | Emergency (ER) | payer MEDICARE, BC ==
[~2020-06-29] VITALS: Ht 175.3 cm; Wt 90.8 kg
[~2020-06-29 10:00] MED LIST changes: -ASPI-515 PO; +ASPI-963 PO; -ESCI20TA PO; +ESCI20TA8 PO
--- NOTE | 2020-06-29 10:13 | NUR ---
PT PRESENTS TO ED WITH RT SIDE FOREHEAD BRUISING AND TENDERNESS AFTER FALL FROM BED, HITTING HEAD ON NIGHTSTAND TABLE. PT AOX4, DENIES LOC. PT CURRENTLY ON ELAQUIS FOR AFIB. SITTING UP IN BED, VSS. AWAITING ED MD HAYNES. SIDE RAILS UP, CALL LIGHT IN REACH. DAUGHTER ACCOMPANYING PT.
[2020-06-29] MEDS ORDERED: BUPRENORPHINE TD (10:21)
[2020-06-29] MEDS ORDERED: HYDR25TA6 PO (10:33)
[2020-06-29] MEDS ORDERED: CHLO25TA PO (10:33)
[2020-06-29] MEDS ORDERED: BENA40TA3 PO (10:33)
[2020-06-29] MEDS ORDERED: POTA10TA31 PO (10:33)
[2020-06-29] MEDS ORDERED: PENT100C2 PO (10:33)
--- NOTE | 2020-06-29 10:50 | NUR ---
PT TAKEN TO IMAGING
[2020-06-29] MEDS ORDERED: SODIUM CHLORIDE FLUSH 10ML SYR IVF ONE (11:00)
--- NOTE | 2020-06-29 11:22 | NUR ---
PT RECLINED IN BED, RESPIRATIONS EVEN AND UNLABORED ON RA. DAUGHTER AT BEDSIDE. PT PACEMAKER IS [employer].
--- NOTE | 2020-06-29 11:48 | NUR ---
INTERROGATION OF PACEMAKER COMPLETED. PT UP TO BEDSIDE COMMODE FOR UA, AND BACK IN BED, NAD NOTED AT THIS TIME.
[2020-06-29 11:56] LABS: BASOPHILS % (AUTO) 0 % (0-1); EOSINOPHILS % (AUTO) 0 % (1-7); LYMPHOCYTES % (AUTO) 8 % (22-44); MEAN CORPUSCULAR HEMOGLOBIN 33.1 pg (27.0-34.8); MEAN CORPUSCULAR HGB CONC 32.3 g/dL (32.4-35.8); MEAN PLATELET VOLUME 7.8 fL (7.4-10.4); MONOCYTES % (AUTO) 6 % (2-9); NEUTROPHILS % (AUTO) 86 % (42-75); PLATELET COUNT 230 x10^3/uL (130-400); RED BLOOD COUNT 4.26 x10^6/uL (3.82-5.3); RED CELL DISTRIBUTION WIDTH 13.3 % (9.6-15.2)
[2020-06-29 11:59] LABS: MICROSCOPIC NOT IND
[2020-06-29 12:07] LABS: ALANINE AMINOTRANSFERASE 85 U/L (12-78); ALBUMIN 3.3 g/dL (3.4-5.0); ANION GAP 6 mmol/L (5-15); CALCIUM 9.6 mg/dL (8.5-10.1); CHLORIDE 105 mmol/L (98-107); CREATININE 1.07 mg/dL (0.55-1.02)
[2020-06-29 12:10] LABS: ALKALINE PHOSPHATASE 86 U/L (45-117); BILIRUBIN,TOTAL 0.4 mg/dL (0.2-1.0); TOTAL PROTEIN 6.3 g/dL (6.4-8.2)
[2020-06-29 12:29] LABS: MD SCAN
[2020-06-29] MEDS ORDERED: SODIUM CHLORIDE 0.9%, 500ML IVBOLUS ONE (12:30)
[2020-06-29 13:57] VITALS: BP 146/72
== END 2020-06-29 14:00 | disposition home or self-care (01) ==
LOC: ED 11:48
DX: E86.0 Dehydration (principal); R55 Syncope and collapse; I10 Essential (primary) hypertension; I48.91 Unspecified atrial fibrillation; R94.31 Abnormal electrocardiogram [ECG] [EKG]
CPT/HCPCS: 36415; 70450; 80053; 81003; 83735; 85025; 93005; 96360; 99285; J7040

== ENCOUNTER → 2020-09-15 | Outpatient (CLI) | payer MEDICARE, BC ==
[~2020-09-15] MED LIST changes: +APIX5TAB PO; +BENA40TA3 PO; +BUPRENORPHINE TD; +CHLO25TA PO; +ESCI10TA97 PO; +POTA10TA31 PO; +SENN-211 PO
== END | disposition home or self-care (01) ==
LOC: CVU 09:49
PROVIDERS: ATTEND Internal Medicine Cardiovascular Disease
DX: I65.23 Occlusion and stenosis of bilateral carotid arteries (principal); I10 Essential (primary) hypertension; I48.91 Unspecified atrial fibrillation; Z95.0 Presence of cardiac pacemaker
CPT/HCPCS: 93880

== ENCOUNTER 2020-09-19 20:00 | Emergency (ER) | payer MEDICARE, BC ==
[~2020-09-19] VITALS: Ht 175.3 cm; Wt 100.0 kg
--- NOTE | 2020-09-19 20:11 | NUR ---
deya from home for feelings of malaise and nausea, feet burning and feelings of being deathly ill since 0900 this am pt has had a med change of a antidepressant yesterday, unknown, and recently out of rehab 2 weeks agos and has been doing PT. pt recieved 4mg zofran mink rancher. pt in bed, given blabnkets, attached to card/sp02.bp monitors. vss. nadn. bed in low, rails engaged, call light on lap.
--- NOTE | 2020-09-19 20:24 | NUR ---
pt given heated blankets
[2020-09-19] MEDS ORDERED: ONDANSETRON 2MG/ML, 2ML IVPush ONE (20:30)
[2020-09-19] MEDS ORDERED: SODIUM CHLORIDE 0.9% 1,000ML IVBOLUS ONE (20:30)
[2020-09-19] MEDS ORDERED: ONDANSETRON 2MG/ML, 2ML ONE (20:48)
--- NOTE | 2020-09-19 21:06 | NUR ---
pt o2 dropped to 79% on RA with good waveform. pt now on 2L 93%
[2020-09-19 21:14] LABS: BASOPHILS % (AUTO) 0 % (0-1); EOSINOPHILS % (AUTO) 0 % (1-7); LYMPHOCYTES % (AUTO) 9 % (22-44); MEAN CORPUSCULAR HEMOGLOBIN 34.1 pg (27.0-34.8); MEAN CORPUSCULAR HGB CONC 34.2 g/dL (32.4-35.8); MEAN PLATELET VOLUME 7.7 fL (7.4-10.4); MONOCYTES % (AUTO) 4 % (2-9); NEUTROPHILS % (AUTO) 87 % (42-75); PLATELET COUNT 283 x10^3/uL (130-400); RED BLOOD COUNT 3.54 x10^6/uL (3.82-5.3); RED CELL DISTRIBUTION WIDTH 13.3 % (9.6-15.2)
[2020-09-19 21:19] LABS: ALANINE AMINOTRANSFERASE 17 U/L (12-78); ANION GAP 9 mmol/L (5-15); CALCIUM 9.7 mg/dL (8.5-10.1); CHLORIDE 99 mmol/L (98-107)
[2020-09-19 21:23] LABS: ALKALINE PHOSPHATASE 77 U/L (45-117); BILIRUBIN,TOTAL 0.6 mg/dL (0.2-1.0); TOTAL PROTEIN 6.2 g/dL (6.4-8.2); TROPONIN I < 0.015 ng/mL (0.000-0.045)
--- NOTE | 2020-09-19 22:23 | NUR ---
PT RESTING ON GURNEY RESP EVEN AND UNLABORED NADN, VSS NO NEEDS AT THIS TIME.
[2020-09-19] MEDS ORDERED: DIPHENHYDRAMINE 50 MG/ML, 1ML IVPush ONE (23:00)
[2020-09-19] MEDS ORDERED: LORazepam 2 MG/ML, 1ML IVPush ONE (23:00)
--- NOTE | 2020-09-19 23:28 | NUR ---
task RN: attempted to D/C pt. Rx has been cancelled per Dr. Dyson. pt was hypoxic earlier on RA and is resting calmly at this time attempted to enter room to D/C patient. pt and family refuse to be D/C to self. insistant hat pt needs to be transported home via ambulance as family reports that "that is how she got here" family states that pt moves around via WC at home and that they do not have her WC here. attempted to discuss alternatives to ambulance, pt and family remain insistant that pt must be transported home via ambulance. Dr. Dyson notified
[2020-09-19 23:52] VITALS: BP 160/74
--- NOTE | 2020-09-19 23:52 | NUR ---
pt urinated on breif. pt changed and cleansed to hospital protocol. nw brief applied. vss. khadarn. ewctm
--- NOTE | 2020-09-20 00:13 | NUR ---
THROUGHPUT RN: [facility] ARRANGED FOR 0100 OR DARLENE
[2020-09-20] MEDS ORDERED: LORazepam 0.5MG TABLET ONE (00:24)
[2020-09-20] MEDS ORDERED: LORazepam 0.5MG TABLET PO ONE (00:30)
--- NOTE | 2020-09-20 00:51 | NUR ---
Patient/Caregiver given discharge instructions and they have confirmed that they understand the instructions. pt taken via [facility]. pt sp02 stable upon transport. pt family states she will be on 1L nc occasionally at home. NAD, all questions answered appropriately, denies additional needs at this time. No personal belongings left in room after discharge. pt feeling better about taken ambulance and anxiety releieved after medication admin.
== END 2020-09-20 00:53 | disposition home or self-care (01) ==
LOC: ED 20:30
DX: F41.1 Generalized anxiety disorder (principal); R11.2 Nausea with vomiting, unspecified; R19.7 Diarrhea, unspecified; G62.9 Polyneuropathy, unspecified; M79.7 Fibromyalgia; I10 Essential (primary) hypertension; I48.91 Unspecified atrial fibrillation; Z87.891 Personal history of nicotine dependence
CPT/HCPCS: 36415; 80053; 84484; 85025; 93005; 96374; 99284; J2405; J7030

== ENCOUNTER 2020-10-26 10:29 | Emergency (ER) | payer MEDICARE, BC ==
[~2020-10-26] VITALS: Ht 175.3 cm; Wt 90.0 kg
[2020-10-26 14:20] VITALS: BP 158/70
== END 2020-10-26 16:10 | disposition home or self-care (01) ==
LOC: ED 10:29
DX: R41.82 Altered mental status, unspecified (principal); N30.00 Acute cystitis without hematuria; I10 Essential (primary) hypertension; I48.91 Unspecified atrial fibrillation
CPT/HCPCS: 36415; 70450; 71045; 80053; 81001; 84484; 85025; 87040; 87077; 87086; 87186; 93005; 96365; 99285; J0696

== ENCOUNTER 2020-10-26 19:39 | Emergency (ER) | payer MEDICARE, BC ==
[~2020-10-26] VITALS: Ht 170.2 cm; Wt 95.4 kg
[2020-10-26] MEDS ORDERED: DILTIAZEM 5 MG/ML, 5ML IVPush ONE ×2 (20:30→22:00)
[2020-10-26] MEDS ORDERED: ACETAMINOPHEN 500 MG TABLET ONE (20:42)
[2020-10-26] MEDS ORDERED: DILTIAZEM 5 MG/ML, 5ML ONE (20:42)
[2020-10-26] MEDS ORDERED: ACETAMINOPHEN 325 MG TABLET ONE (20:47)
[2020-10-26] MEDS ORDERED: ACETAMINOPHEN 325 MG TABLET PO ONE (21:00)
[2020-10-26] MEDS ORDERED: DILTIAZEM 60 MG CAP.ER.12H PO ONE (22:30)
--- NOTE | 2020-10-27 01:23 | NUR ---
BREAK NURSE. PT RESTING IN BED COMFORTABLY WITH DAUGHTER AT BEDSIDE PT IN NAD. VSS. A&OX4, PT STATING SHE WANTS TO BE HOME. BREATHING EVEN AND UNLABORED NO ADDITIONAL NEEDS OR QUESTIONS AT THIS TIME. WCTM
--- NOTE | 2020-10-27 02:38 | NUR ---
PT AND DAUGHTER GIVEN BLANKETS. ASKED 3 P'S/. NO ADDITIONAL NEEDS OR QUESTIONS.
[2020-10-27 03:22] VITALS: BP 111/63
== END 2020-10-27 03:33 ==
LOC: ED 21:18
DX: I48.20 Chronic atrial fibrillation, unspecified (principal); N39.0 Urinary tract infection, site not specified
CPT/HCPCS: 96374; 99285